=== PATIENT | female | born 1990 | race African-American/Black ===

== ENCOUNTER 2016-12-11 12:49 | Emergency (ER) | payer SELFPAY ==
[~2016-12-11] VITALS: Ht 165.1 cm; Wt 61.2 kg
[2016-12-11 12:54] VITALS: BP 108/62
== END 2016-12-11 13:09 | disposition left against medical advice (07) ==
LOC: ER 12:54
DX: N89.8 Other specified noninflammatory disorders of vagina (principal); Z53.21 Procedure and treatment not carried out due to patient leaving prior to being seen by health care provider